=== PATIENT | female | born 1955 | race African-American/Black ===

== ENCOUNTER 2018-08-24 09:48 | Observation (INO) | payer OTHER ==
[~2018-08-24] VITALS: Ht 170.2 cm; Wt 45.4 kg
[2018-08-24] MEDS ORDERED: SODIUM CHLORIDE 0.9% 1000ML 1,000 ML IV STA (09:51)
--- OUTSIDE RECORDS SUMMARY | 2018-08-24 09:51 | XMS REPORT ---
Author Author [facility] Address Unknown Phone Unavailable Care Team Providers Care Bulk Driver Name Role Phone UNKNOWN, REFERRING PP Unavailable Problems This patient has no known problems. Allergies, Adverse Reactions, Alerts This patient has no known allergies or adverse reactions. Medications This patient has no known medications. Encounters Start Date/Time End Date/Time Encounter Type Admission Type Attending Clinicians Care Facility Care Department Encounter ID 2017-09-05 09:30:00 2017-09-05 09:30:00 Emergency E [facility] [id number] Results Test Description Test Time Test Comments Text Results Atomic Results Result Comments URINE DRUG SCREEN 2018-07-30 14:34:00 AMPHET (test code=BAMP) NEGATIVE NEGATIVE This is an unconfirmed screening. Result are to be used for medical purposes (treatment) only. Not intended for non-medical purposes. Cut-off concentration for a positive result for each drug: Amphetamine - 1,000 ng/ml Barbiturate - 200 ng/ml Benzodiazepine - 200 ng/ml Cannabinoids - 50 ng/ml Cocaine - 300 ng/ml Opiates - 300 ng/ml PCP - 25 ng/ml BARBITURATES (test code=BBAR) NEGATIVE NEGATIVE BENZO (test code=BBENZ) NEGATIVE NEGATIVE CANNABS (test code=BCANN) NEGATIVE NEGATIVE COCAINE (test code=BCOC) NEGATIVE NEGATIVE OPIATES (test code=BOPI) NEGATIVE NEGATIVE PCP (test code=BMTPCP) NEGATIVE NEGATIVE [id number] 13:55:00* Test Item Value Reference Range Comments GLUCOSE (test code=URGLU) NEGATIVE MG/DL NEG-100 BILIRUBN (test code=URBILI) NEGATIVE NEGATIVE KETONE (test code=URKET) TRACE MG/DL NEGATIVE BLOOD (test code=URBLD) NEGATIVE UR PH (test code=URPH) 5.5 5.0-7.5 PROTEIN (test code=URPRO) NEGATIVE MG/DL NEGATIVE NITRITES (test code=URNIT) NEGATIVE NEGATIVE UROBILINGEN (test code=URURO) 1.0 EU/DL 0.2-1.0 LEUKOCYT (test code=URLEU) TRACE NEGATIVE UA COLOR (test code=UA COLOR) YELLOW YELLOW CLARITY (test code=CLARITY) CLEAR CLEAR SP GRAV (test code=URSPGRAV) 1.009 1.000-1.025 UAMICRO (test code=UAMICRO) YES WBC (test code=URWBC) 5 /HPF 0-5 RBC (test code=URRBC) 1 /HPF 0-2 CASTS (test code=CAST) 1 /LPF 0-3 UR EPI (test code=EPI) 21 /LPF BACTERIA (test code=BACTERIA) NEGATIVE NONE BLOOD ALCOHOL (ETOH)2018-07-30 12:23:00* Test Item Value Reference Range Comments ALCOHOL BLOOD LEVEL (test code=ALC BLD) 318 MG/DL 0-10 RESULTS VERIFIED.C'd TO OT/1223/JEC Results are to be used for medical purposes (treatment) only. Not intended for non medical purposes. BMP, BASIC METABOLIC [id number] 12:22:00* Test Item Value Reference Range Comments SODIUM (test code=NA) 148 MMOL/L 137-145 K+ (test code=KSERUM) 4.4 MMOL/L 3.5-5.1 PLEASE NOTE NEW REFERENCE RANGE(S) IN EFFECT EFFECTIVE 06/07/2010 - NEW ANALYZER (Vessix 5600) CHLORIDE (test code=CL) 106 MMOL/L 98-107 CO2 (test code=CO2) 31 MMOL/L 22-30 BUN (test code=BUN) 6 MG/DL 7-17 CREA (test code=CREA) 0.3 MG/DL 0.7-1.2 GLUCOSE (test code=GLUCOSE) 92 MG/DL 70-99 Fasting glucose normal <100 MG/DL- [place] [employer] recommendation CALCIUM (test code=CABLOOD) 9.6 MG/DL 8.4-10.2 GFR (test code=GFR) 290 mL/min/1.73m2 A GFR of >90 mL/min/1.73m2 is considered normal. CT HEAD W/O [id number] 12:05:00[address] [id number] IMAGING REPORTPatient Name: Yasemin ANNA of Service: [id number]: 62 Sex: F Order #: [id number] [facility] 1955 [facility] Number: [id number] Record Number: [id number] Hospital Number: [id number] Physician: MARTIN SEGUNDO -Ordering Physician: RADHA JACKSON BRAIN WITHOUT CONTRAST@1139 hours July 30, 2018:CLINICAL HISTORY: Dizziness; fell striking his head; history of alcoholismand hypertension; no prior studies hereTECHNIQUE: Examination is performed with 3.75 mm axial sections withcoronal and sagittal reconstructions This CT exam was performed using oneor more of the following dose reduction techniques: Automated exposurecontrol, adjustment of the MA and or KV according to patient size or use ofiterative reconstruction technique.FINDINGS: The bony calvarium is grossly intact. There are no fluid levelsin the sinuses or mastoids.There is calcified plaque demonstrated in both cavernous carotid arteri es.There is mild underlying cortical and cerebellar atrophy present.Impression: No acute changes are demonstrated.Electronically Signed By: Randolph Boateng M.D., 07/30/2018 12:03 PMLegally authenticated by YOHANNES Garcia 2018-07-30 12:03:[id number] 11:52:00* Test Item Value Reference Range Comments WBC (test code=WBC) 6.8 K/UL 3.5-10.9 RBC (test code=RBC) 4.08 M/UL 4.0-5.0 HGB (test code=HGB) 15.0 G/DL 11.5-15.5 HCT (test code=HCT) 40.4 % 34-46 MCV (test code=MCV) 99.0 FL 80-98 MCH (test code=MCH) 36.8 PG 28-32 MCHC (test code=MCHC) 37.1 G/DL 32.5-36.5 RDW (test code=RDW) 12.1 % 11.5-14.5 PLT (test code=PLT) 122 K/UL 150-450 MPV (test code=MPV) 11.0 FL 7.4-10.4 MANDIFF (test code=MANDIFF) NO SCAN (test code=SCAN) NO NEUT% (test code=NEUT%) 39.9 % 40-75 LYMPH% (test code=LYMPH%) 46.4 % 24-44 MONO% (test code=MONO%) 10.0 % 0-13 EOS% (test code=EOS%) 1.9 % 0-4 BASO % (test code=BASO%) 1.5 % 0-2 IG (test code=IG) 0 % 0-1 IG% (test code=IG%) 0.3 % 0-1 IG%=Metamyelocytes, Myelocytes, and Promyelocytes. (Immature neutrophils not including "bands".) > 3% IG indicates risk of sepsis NRBC% (test code=NRBC%) 0 /100 WBC ABS NEUT (test code=NEUT) 2.7 K/UL 1.2-7.2 VITAMIN D,1,25 [id number] 12:18:00* Test Item Value Reference Range Comments CALCITRIOL (1,25 DI-OH VIT D) (test code=VITD1,25) 43.2 pg/mL 19.9-79.3 Performed at: [facility] Lab[address] [id number] Repair Tech: Edmar Vanessa MD, Phone: [phone] HEPATITIS C ANTIBODY [id number] 15:35:00* Test Item Value Reference Range Comments SCRN HCV (test code=SCRN HCV) NEGATIVE NEGATIVE Hepatitis C Antibody test is for screening purposes only. All reactives will be confirmed by additional testing. ER SCREEN FOR HIV 15:19:00* Test Item Value Reference Range Comments HIV 1/2 AB (test code=SCRN HIV) NONREACTIVE NONREACTIVE This test is used for SCREENING purposes only. All reactive results are prelimenary and confirmation results will follow. [id number] 11:37:00* Test Item Value Reference Range Comments MG (test code=MG) 1.1 mg/dL 1.6-2.3 CT ABDOMEN/PELVIS [id number] 07:29:00[address] [id number] IMAGING REPORTPatient Name: Yasemin ANNA of Service: [id number]: 62 Sex: F Order #: [id number] Room: [address] [place] [address] T4DOB: 1955 X-Ray Number: [id number] Record Number: [id number] Hospital Number: [id number] Physician: SOL CAESAROrdering Physician: CHARLIE OLIVA ABDOMEN/PELVIS WITH 06/25/2018 10:05 PMHISTORY: ast/alt elevation . Abnormal liver function tests. Abdominalpain with abnormal weight loss.COMPARISON: NoneTECHNIQUE: IV contrast-enhanced CT imaging of the abdomen and pelvis. ThisCT exam was performed using one or more of the following dose reductiontechniques: Automated exposure control, adjustment of the mA and/or KVaccording to patient size, or use of iterative reconstruction technique.FINDINGS:There is mild bibasilar atelectasis. The heart size is normal.The liver is enlarged and fatty. The gallbladder is distended withoutbiliary duct dilatation.The spleen, pancreas, adrenal glands, and kidneys are normal.The bowel is unobstructed. The bladder is distended and normal.The bones are intact without acute abnormality. There is degenerative discdisease of the lumbar spine.IMPRESSION:1. Hepatic steatosis with hepatomegaly.Electro nically Signed By: Gianni Obregon M.D., 06/26/2018 7:26 AMLegally authenticated by KIRK AGUIRRE 2018-06-26 07:26:[id number] 07:27:00* Test Item Value Reference Range Comments LIPASE (test code=LIPA) 204 U/L 23-300 BMP, BASIC METABOLIC [id number] 07:26:00* Test Item Value Reference Range Comments SODIUM (test code=NA) 141 MMOL/L 137-145 K+ (test code=KSERUM) 2.6 MMOL/L 3.5-5.1 PLEASE NOTE NEW REFERENCE RANGE(S) IN EFFECT EFFECTIVE 06/07/2010 - NEW ANALYZER (Vessix 5600) CHLORIDE (test code=CL) 96 MMOL/L 98-107 CO2 (test code=CO2) 34 MMOL/L 22-30 BUN (test code=BUN) 3 MG/DL 7-17 CREA (test code=CREA) 0.4 MG/DL 0.7-1.2 GLUCOSE (test code=GLUCOSE) 110 MG/DL 70-99 Fasting glucose normal <100 MG/DL- [place] [employer] recommendation CALCIUM (test code=CABLOOD) 8.4 MG/DL 8.4-10.2 GFR (test code=GFR) 208 mL/min/1.73m2 A GFR of >90 mL/min/1.73m2 is considered normal. RESULTS VERIFIED.C'd TO Shanelle BUIRN/4T @ 0725 06/26/18--[id number] 06:17:00* Test Item Value Reference Range Comments WBC (test code=WBC) 6.5 K/UL 3.5-10.9 RBC (test code=RBC) 3.38 M/UL 4.0-5.0 HGB (test code=HGB) 12.5 G/DL 11.5-15.5 HCT (test code=HCT) 33.6 % 34-46 MCV (test code=MCV) 99.4 FL 80-98 MCH (test code=MCH) 37.0 PG 28-32 MCHC (test code=MCHC) 37.2 G/DL 32.5-36.5 RDW (test code=RDW) 12.5 % 11.5-14.5 PLT (test code=PLT) 103 K/UL 150-450 MPV (test code=MPV) 11.7 FL 7.4-10.4 MANDIFF (test code=MANDIFF) NO SCAN (test code=SCAN) NO NEUT% (test code=NEUT%) 49.0 % 40-75 LYMPH% (test code=LYMPH%) 35.4 % 24-44 MONO% (test code=MONO%) 12.6 % 0-13 EOS% (test code=EOS%) 2.0 % 0-4 BASO % (test code=BASO%) 0.8 % 0-2 IG (test code=IG) 0 % 0-1 IG% (test code=IG%) 0.2 % 0-1 IG%=Metamyelocytes, Myelocytes, and Promyelocytes. (Immature neutrophils not including "bands".) > 3% IG indicates risk of sepsis ABS NEUT (test code=NEUT) 3.2 K/UL 1.2-7.2 VITAMIN [id number] 00:54:00* Test Item Value Reference Range Comments B12 (test code=B12) 841 pg/mL 239-931 LIVER [id number] 00:54:00* Test Item Value Reference Range Comments TOTPROT (test code=TOTPROT) 7.7 G/DL 6.3-8.2 ALBUMIN (test code=ALBSERUM) 4.5 G/DL 3.5-5.0 BILITOT (test code=BILITOT) 1.4 MG/DL 0.2-1.3 BILIDIR (test code=BILIDIR) 0.5 MG/DL 0.0-0.4 AST (test code=AST) 144 U/L 15-46 PHOSALK (test code=PHOSALK) 49 U/L 38-126 ALT (test code=ALT) 61 U/L 13-69 AMYLASE, [id number] 00:54:00* Test Item Value Reference Range Comments AMYLASE (test code=AMYLBLD) 83 U/L 30-110 [id number] 20:30:00* Test Item Value Reference Range Comments K+ (test code=KSERUM) 3.4 MMOL/L 3.5-5.1 PLEASE NOTE NEW REFERENCE RANGE(S) IN EFFECT EFFECTIVE 06/07/2010 - NEW ANALYZER (Vessix 5600) ACUTE HEPATITIS [id number] 16:26:00* Test Item Value Reference Range Comments HAAB,M (test code=HAAB,M) NEGATIVE NEGATIVE HBCABM (test code=HBCABM) NEGATIVE NEGATIVE A GRAYZONE result is presumptive evidence of IgM anti-HBc. Patients with specimens exhibiting booth zone reactive test results should be retested at approximately one-week intervals. HCV (test code=HCV) NEGATIVE NEGATIVE Hepatitis C Antibody test is for screening purposes only. All reactives will be confirmed by additional testing. HEPBSAG (test code=HEPBSAG) NEGATIVE NEGATIVE Hepatitis B Surface Antigen is for screening purpose only. All reactives will be sent to reference lab for confirmation. [id number] 13:58:00* Test Item Value Reference Range Comments GLUCOSE (test code=URGLU) NEGATIVE MG/DL NEG-100 BILIRUBN (test code=URBILI) NEGATIVE NEGATIVE KETONE (test code=URKET) NEGATIVE MG/DL NEGATIVE BLOOD (test code=URBLD) NEGATIVE UR PH (test code=URPH) 6.5 5.0-7.5 PROTEIN (test code=URPRO) NEGATIVE MG/DL NEGATIVE NITRITES (test code=URNIT) NEGATIVE NEGATIVE UROBILINGEN (test code=URURO) 0.2 EU/DL 0.2-1.0 LEUKOCYT (test code=URLEU) TRACE NEGATIVE UA COLOR (test code=UA COLOR) YELLOW YELLOW CLARITY (test code=CLARITY) CLEAR CLEAR SP GRAV (test code=URSPGRAV) 1.002 1.000-1.025 UAMICRO (test code=UAMICRO) YES WBC (test code=URWBC) 3 /HPF 0-5 RBC (test code=URRBC) 0 /HPF 0-2 CASTS (test code=CAST) 0 /LPF 0-3 UR EPI (test code=EPI) 2 /LPF BACTERIA (test code=BACTERIA) NEGATIVE NONE [id number] 13:28:00* Test Item Value Reference Range Comments SODIUM (test code=NA) 149 MMOL/L 137-145 K+ (test code=KSERUM) 2.5 MMOL/L 3.5-5.1 PLEASE NOTE NEW REFERENCE RANGE(S) IN EFFECT EFFECTIVE 06/07/2010 - NEW ANALYZER (SunriseS 5600) CHLORIDE (test code=CL) 100 MMOL/L 98-107 CO2 (test code=CO2) 29 MMOL/L 22-30 BUN (test code=BUN) 6 MG/DL 7-17 CREA (test code=CREA) 0.4 MG/DL 0.7-1.2 GLUCOSE (test code=GLUCOSE) 88 MG/DL 70-99 Fasting glucose normal <100 MG/DL- [place] [employer] recommendation CALCIUM (test code=CABLOOD) 9.5 MG/DL 8.4-10.2 TOTPROT (test code=TOTPROT) 7.7 G/DL 6.3-8.2 ALBUMIN (test code=ALBSERUM) 4.7 G/DL 3.5-5.0 BILITOT (test code=BILITOT) 1.6 MG/DL 0.2-1.3 AST (test code=AST) 157 U/L 15-46 PHOSALK (test code=PHOSALK) 57 U/L 38-126 ALT (test code=ALT) 80 U/L 13-69 GFR (test code=GFR) 208 mL/min/1.73m2 A GFR of >90 mL/min/1.73m2 is considered normal. RESULTS VERIFIED.C'd TO Carlos Alberto BROCK,FOUNDATION RELATIONS MANAGER/ER @ 1327 06/25/18--SBAFREE [id number] 13:28:00* Test Item Value Reference Range Comments FT4 (test code=FT4) 1.26 ng/dL 0.78-2.19 T3, [id number] 13:28:00* Test Item Value Reference Range Comments T3UP (test code=T3UP) 32.9 % 23.5-40.5 THYROID STIMULATION [id number] 13:28:00* Test Item Value Reference Range Comments TSH (test code=TSH) 2.65 UIU/ML 0.465-4.68 [id number] 13:09:00* Test Item Value Reference Range Comments WBC (test code=WBC) 6.9 K/UL 3.5-10.9 RBC (test code=RBC) 3.71 M/UL 4.0-5.0 HGB (test code=HGB) 13.4 G/DL 11.5-15.5 HCT (test code=HCT) 36.8 % 34-46 MCV (test code=MCV) 99.2 FL 80-98 MCH (test code=MCH) 36.1 PG 28-32 MCHC (test code=MCHC) 36.4 G/DL 32.5-36.5 RDW (test code=RDW) 12.6 % 11.5-14.5 PLT (test code=PLT) 104 K/UL 150-450 MPV (test code=MPV) 11.3 FL 7.4-10.4 MANDIFF (test code=MANDIFF) NO SCAN (test code=SCAN) NO NEUT% (test code=NEUT%) 41.0 % 40-75 LYMPH% (test code=LYMPH%) 46.1 % 24-44 MONO% (test code=MONO%) 9.8 % 0-13 EOS% (test code=EOS%) 1.9 % 0-4 BASO % (test code=BASO%) 0.9 % 0-2 IG (test code=IG) 0 % 0-1 IG% (test code=IG%) 0.3 % 0-1 IG%=Metamyelocytes, Myelocytes, and Promyelocytes. (Immature neutrophils not including "bands".) > 3% IG indicates risk of sepsis ABS NEUT (test code=NEUT) 2.8 K/UL 1.2-7.2 TROPONIN I - [id number] 13:07:00* Test Item Value Reference Range Comments TROP-I (test code=TROP-I) <0.012 ng/ml 0.012-0.033 INTERPRETIVE DATA A TROPONIN OF LESS THAN 0.034 NG/ML IS CONSIDERED NEGATIVE A TROPONIN OF 0.034 - 0.119 NG/ML IS CONSIDERED GRAYZONE A TROPONIN=/> 0.120 NG/ML IS CONSIDERED POSITIVE [id number] 13:07:00* Test Item Value Reference Range Comments %CKMB (test code=%MB) 0.7 % CKMB (test code=CKMB) 0.7 NG/ML 0.22-2.4 CK (test code=CK) 104 U/L 30-135 CKINTERP (test code=CKINTERP) NEGATIVE Negative CHEST 1 VIEW [id number] 13:00:00[address] [id number] IMAGING REPORTPatient Name: Yasemin ANNA of Service: [id number]: 62 Sex: F Order #: [id number] Room: [facility]: 1955 X-Ray Number: [id number] Record Number: [id number] Hospital Number: [id number] Physician: Anna BENOIT Physician: Mauri OLIVA.HypertensionHistory: Short of breath.Technique: Single AP chest projection.Findings: Single chest projection demonstrates normal heart size and clearlungs. No infiltrates or abnormalities are depicted. The osseous structuresappear intact.Impression:No acute-appearing cardiopulmonary abnormalities.Electronically Signed By: Mike Anna M.D., 06/25/2018 12:57 PMLegally authenticated by SHOSHANA Guerrero 2018-06-25 12:57:56HIP JOINT 2 [id number] 11:54:00[address] [id number] IMAGING REPORTPatient Name: Yasemin ANNA of Service: [id number]: 62 Sex: F Order #: [id number] [facility] 1955 [facility] Number: [id number] Record Number: [id number] Hospital Number: [id number] Physician: MARTIN SEGUNDO -Ordering Physician: Mariano ABREU hip 2 views:CLINICAL HISTORY: Fell 8 months ago; pain in the left hip; no recurrenttraumaTECHNIQUE: The pelvis and lateral view the left hip are submittedFINDINGS: The pelvis is grossly intact with no fractures identified.There are mild degenerative changes seen in both hips.The soft tissues are unremarkable.Impression: No evidence of acute bony injury to the pelvis or left hip..Electronically Signed By: Randolph Boateng M.D., 01/27/2018 11:51 Mitra authenticated by YOHANNES Garcia 2018-01-27 11:51:42
[2018-08-24] MEDS ORDERED: ASPIRIN 81 MG CHEW TAB PO ONE (10:00)
[2018-08-24] MEDS ORDERED: ONDANSETRON HCL INJ 2 MG/ML VIAL IV PRN ×2 (10:00→12:30)
[2018-08-24] MEDS ORDERED: ACETAMINOPHEN 325 MG TAB PO PRN (10:00)
[2018-08-24 10:55] LABS: BASOPHILS % 0.5 % (0.0-1.0); EOSINOPHILS # (AUTO) 0.2 (0.0-0.4); EOSINOPHILS % 2.2 % (0.0-6.0); HEMATOCRIT 39.1 % (34.2-44.1); LYMPHOCYTES # (AUTO) 1.8 (1.0-3.2); LYMPHOCYTES % 21.9 % (18.0-39.1); MEAN CORPUSCULAR HEMOGLOBIN 35.6 pg (28-32); MEAN CORPUSCULAR HGB CONC 35.8 g/dL (31-35); MEAN CORPUSCULAR VOLUME 99.5 fL (81-99); MONOCYTES # (AUTO) 0.9 (0.2-0.8); MONOCYTES % 11.3 % (4.4-11.3); NEUTROPHILS # (AUTO) 5.3 (2.1-6.9); NEUTROPHILS % 63.7 % (38.7-80.0); PLATELET COUNT 91 x10e3/uL (140-360); RED BLOOD COUNT 3.93 x10e6/uL (3.6-5.1); RED CELL DISTRIBUTION WIDTH 12.7 % (11.7-14.4)
[2018-08-24 11:14] LABS: ALANINE AMINOTRANSFERASE 22 IU/L (0-55); ALBUMIN 3.9 g/dL (3.5-5.0); ALBUMIN/GLOBULIN RATIO 1.1 (0.8-2.0); ALKALINE PHOSPHATASE 50 IU/L (40-150); AMYLASE 111 U/L (25-125); ANION GAP 17.1 mmol/L (8-16); BLOOD UREA NITROGEN 12 mg/dL (7-26); BUN/CREATININE RATIO 20 (6-25); CALCIUM 10.5 mg/dL (8.4-10.2); CARBON DIOXIDE 29 mmol/L (22-29); CHLORIDE 99 mmol/L (98-107); CREATINE KINASE 83 IU/L (29-168); CREATININE, SERUM 0.59 mg/dL (0.57-1.11); EST GLOMERULAR FILTRATION RATE > 60 ML/MIN (60-); GLUCOSE 102 mg/dL (74-118); LIPASE 78 U/L (8-78); MAGNESIUM 1.8 MG/DL (1.3-2.1); POTASSIUM 3.1 mmol/L (3.5-5.1); SODIUM 142 mmol/L (136-145)
--- NOTE | 2018-08-24 11:28 | Diagnostic Imaging Report ---
EXAMINATION: Head CT HISTORY: Altered mental status, hypertension. COMPARISON: None. TECHNIQUE: Multidetector axial images were obtained without contrast from the foramen magnum to the vertex . The images were reconstructed using brain and bone algorithms. Thin section brain images were reformatted into coronal and sagittal planes. Image quality: Motion/streaking artifact limits the evaluation of the skull base and posterior cranial fossa. Dose modulation, iterative reconstruction, and/or weight based adjustment of the mA/kV was utilized to reduce the radiation dose to as low as reasonably achievable. FINDINGS: Parenchyma: 1. A few scatter white matter hypodensities, most likely age-related minimal chronic microvascular ischemic changes. Otherwise no areas of abnormal density 2. No mass or hemorrhage. No CT evidence of acute territorial vascular insult. Extra-axial spaces:No abnormal density. No extra-axial fluid collections Brain volume: Normal for age. Ventricles: No hydrocephalus or displacement. Arteries: No density suggestive of thrombus. Dural sinuses: No abnormal density. Extra-axial spaces: No abnormal density. Foramen magnum: No mass, Chiari malformation, or basilar invagination. Sella: No obvious mass. Paranasal/mastoid sinuses: Imaged portions unremarkable. Skull/Scalp: No lytic or blastic lesions. No fractures. IMPRESSION: 1. No acute intracranial hemorrhage or cortical infarcts. 2. Minimal white matter chronic microvascular ischemic images. Signed by: Dr. Mary Alexander M.D. on 08/24/2018 11:24 AM
--- NOTE | 2018-08-24 11:47 | Diagnostic Imaging Report ---
EXAM: XR CHEST 1 VIEW DATE: 08/24/2018 9:51 AM INDICATION: Decline in mental status, weakness COMPARISON: None FINDINGS: Lines and Tubes: None Heart and Mediastinum: No acute cardiomediastinal findings. Lungs and Pleura: Minimal basilar opacities. Bones and Soft Tissues: No acute findings. IMPRESSION: 1. Minimal basilar opacities could represent atelectasis, edema, or pneumonia. Signed by: Dr. Michael Rosenberg MD on 08/24/2018 11:44 AM
[2018-08-24 12:18] LABS: BILIRUBIN,URINE NEGATIVE (NEGATIVE); CLARITY,URINE SL CLOUDY (CLEAR); COLOR,URINE YELLOW (YELLOW); KETONES,URINE NEGATIVE (NEGATIVE); LEUKOCYTE ESTERASE ,URINE TRACE (NEGATIVE); NITRITE,URINE NEGATIVE (NEGATIVE); PROTEIN,URINE DIPSTICK NEGATIVE (NEGATIVE); URINE UROBILINOGEN 0.2 mg/dL (0.2 - 1)
[2018-08-24 12:23] LABS: BACTERIA,URINE FEW /HPF; EPITHELIAL CELLS,URINE FEW /LPF
[2018-08-24] MEDS ORDERED: DIPHENHYDRAMINE HCL 25 MG CAP PO PRN (12:30)
[2018-08-24] MEDS ORDERED: ZOLPIDEM TARTRATE 5 MG TAB PO PRN (12:30)
[2018-08-24] MEDS ORDERED: LACTULOSE SYRUP 20 GM/30 ML UDC PO PRN (12:30)
[2018-08-24] MEDS ORDERED: IBUPROFEN 200 MG TAB PO PRN (12:30)
[2018-08-24] MEDS ORDERED: MULTIVITAMINS- 12 INJECTION 10 ML, FOLIC ACID MDV 5 MG, THIAMINE HCL INJ 100 MG in SODI... IV ONE ×2 (12:30→12:45)
[2018-08-24] MEDS ORDERED: POTASSIUM CHLORIDE 20 MEQ TAB CR PO STA (12:39)
[2018-08-24 13:46] LABS: HIV 1&2 AB SCREEN NON-REACTIVE (NONREACTIVE)
[2018-08-24 15:14] VITALS: BP 121/68
[2018-08-24] MEDS ORDERED: MULTIVITAMINS1 EAC7 (15:21)
[2018-08-24] MEDS ORDERED: AMLODIPINE BESYL5 MG PO (15:21)
[2018-08-24] MEDS ORDERED: NAPROXEN250 MG PO (15:21)
--- NOTE | 2018-08-24 17:00 | History and Physical ---
PRIMARY CARE PHYSICIAN: Dr. Juarez CHIEF COMPLAINT: Weakness and fatigue at detox center. HISTORY OF PRESENT ILLNESS: This is a 63-year-old woman with a history of alcohol abuse. She was drinking about 1 pint of liquor a day. Checking herself into [facility] about 4 days ago, last week . Due to the patient's severe weakness, fatigue and episode of falling with trauma to her right neck, the patient was sent to the hospital for further evaluation and management. The patient denies any chest pain or shortness of breath. She does have a cough, which is productive. Denies any fever, chills, or sweats. Denies any other symptoms, but does feel very fatigued. PAST MEDICAL HISTORY 1. Hypertension. 2. Alcohol abuse, 1 pint of liquor per day. 3. Chronic weight loss. 4. Cigarette use, about 1/8 pack per day. PAST SURGICAL HISTORY: None. ALLERGIES: PER ELECTRONIC MEDICAL RECORD. FAMILY/SOCIAL HISTORY: The patient is . She has no children. She states she quit alcohol about 4 days ago, which she has been in detox for. She smokes about 1/8 pack of cigarettes per day. MEDICATIONS: Per electronic medical record. REVIEW OF SYSTEMS: Denies any dizziness, chest pain, fever, chills, sweats, nausea, vomiting, diarrhea, headache, back pain, neck pain. PHYSICAL EXAMINATION VITAL SIGNS: Have been reviewed. GENERAL: A tired-appearing woman resting in bed. HEENT: Atraumatic. She has bitemporal wasting. Dry mucous membranes. CARDIOVASCULAR: Normal S1 and S2. LUNGS: Moderate breath sounds. ABDOMEN: Soft, nontender, nondistended. EXTREMITIES: No edema or calf tenderness. NEUROLOGIC: Alert. She has bradykinesia, slow speech. She is oriented times 3. She moves all extremities. Other motor strength is about 4/5 in all extremities. SKIN: Dry. PSYCHIATRIC: Flat affect. LABS: Reviewed. MEDICATIONS: Reviewed. ASSESSMENT: This is a 63-year-old woman. 1. Underweight state. 2. Thrombocytopenia. 3. Hypokalemia. 4. Hypercalcemia, likely secondary to dehydration. 5. Dehydration. 6. Hyperbilirubinemia. 7. Failure to thrive. 8. Alcohol abuse. 9. Cigarette use. 10. Suspected moderate protein-calorie malnutrition due to bitemporal wasting. 11. Possible early pneumonia. PLAN 1. Obtain prealbumin. 2. Rehydrate the patient. 3. Give folic acid and thiamine. 4. CT scan of the brain is negative. 5. Chest x-ray that shows some minimal opacity which could represent early pneumonia. 6. We will empirically treat the patient with azithromycin and ceftriaxone. Will obtain sputum culture. 7. Physical therapy consultation. 8. Replace electrolytes and recheck. 9. Avoid heparin and Pradaxa in the setting of thrombocytopenia. 10. Obtain hepatitis panel. 11. Follow up HIV screening. 12. Start Ensure 1 bottle 3 times a day. 13. Follow up labs and monitor closely. 14. Use SCD and Pepcid. Job#: [id number]
[2018-08-24] MEDS: FAMOTIDINE 20 MG/2 ML VIAL IV SCH (17:42)
[2018-08-24] MEDS: AZITHROMYCIN 500MG/NS 250 ML 250 ML IV SCH (17:45)
[2018-08-24] MEDS: CEFTRIAXONE SOD 1 GM VIAL IV SCH (17:50)
[2018-08-24 20:00] VITALS: BP 109/69
[2018-08-25] VITALS (7 sets, daily range): BP systolic 117–129; BP diastolic 69–80
[2018-08-25 05:29] LABS: BASOPHILS # (AUTO) 0.1 (0.0-0.1); BASOPHILS % 0.7 % (0.0-1.0); EOSINOPHILS # (AUTO) 0.3 (0.0-0.4); HEMATOCRIT 33.6 % (34.2-44.1); HEMOGLOBIN 11.9 g/dL (12.0-16.0); LYMPHOCYTES # (AUTO) 2.2 (1.0-3.2); LYMPHOCYTES % 30.9 % (18.0-39.1); MEAN CORPUSCULAR HEMOGLOBIN 35.6 pg (28-32); MEAN CORPUSCULAR HGB CONC 35.4 g/dL (31-35); MEAN CORPUSCULAR VOLUME 100.6 fL (81-99); MONOCYTES # (AUTO) 0.9 (0.2-0.8); MONOCYTES % 12.3 % (4.4-11.3); NEUTROPHILS # (AUTO) 3.7 (2.1-6.9); NEUTROPHILS % 51.8 % (38.7-80.0); PLATELET COUNT 84 x10e3/uL (140-360); RED BLOOD COUNT 3.34 x10e6/uL (3.6-5.1); RED CELL DISTRIBUTION WIDTH 12.9 % (11.7-14.4)
[2018-08-25 05:49] LABS: ANION GAP 10.2 mmol/L (8-16); BLOOD UREA NITROGEN 6 mg/dL (7-26); BUN/CREATININE RATIO 12 (6-25); CALCIUM 9.2 mg/dL (8.4-10.2); CARBON DIOXIDE 27 mmol/L (22-29); CHLORIDE 105 mmol/L (98-107); CREATININE, SERUM 0.51 mg/dL (0.57-1.11); EST GLOMERULAR FILTRATION RATE > 60 ML/MIN (60-); GLUCOSE 97 mg/dL (74-118); MAGNESIUM 1.5 MG/DL (1.3-2.1); POTASSIUM 3.2 mmol/L (3.5-5.1); SODIUM 139 mmol/L (136-145)
[2018-08-25] MEDS: ACETAMINOPHEN 325 MG TAB PO PRN ×2 (06:06→23:02)
[2018-08-25] MEDS: FAMOTIDINE 20 MG/2 ML VIAL IV SCH ×2 (08:56→17:16)
[2018-08-25] MEDS ORDERED: ENOXAPARIN SOD INJ 40 MG/0.4 ML SYR SC SCH (09:00)
[2018-08-25] MEDS ORDERED: POTASSIUM CHLORIDE 20 MEQ TAB CR PO STA (09:16)
[2018-08-25] MEDS: CEFTRIAXONE SOD 1 GM VIAL IV SCH (17:00)
[2018-08-25] MEDS: AZITHROMYCIN 500MG/NS 250 ML 250 ML IV SCH (17:20)
[2018-08-25] MEDS: QUETIAPINE FUMARATE 25 MG TAB PO SCH (23:53)
[2018-08-26] VITALS (9 sets, daily range): BP systolic 105–149; BP diastolic 71–98
[2018-08-26 05:32] LABS: BASOPHILS # (AUTO) 0.1 (0.0-0.1); BASOPHILS % 0.9 % (0.0-1.0); EOSINOPHILS # (AUTO) 0.3 (0.0-0.4); EOSINOPHILS % 3.4 % (0.0-6.0); HEMATOCRIT 33.7 % (34.2-44.1); HEMOGLOBIN 11.8 g/dL (12.0-16.0); LYMPHOCYTES # (AUTO) 2.4 (1.0-3.2); LYMPHOCYTES % 31.6 % (18.0-39.1); MEAN CORPUSCULAR HEMOGLOBIN 35.1 pg (28-32); MEAN CORPUSCULAR VOLUME 100.3 fL (81-99); MONOCYTES # (AUTO) 1.1 (0.2-0.8); MONOCYTES % 13.9 % (4.4-11.3); NEUTROPHILS # (AUTO) 3.8 (2.1-6.9); NEUTROPHILS % 49.8 % (38.7-80.0); PLATELET COUNT 92 x10e3/uL (140-360); RED BLOOD COUNT 3.36 x10e6/uL (3.6-5.1); RED CELL DISTRIBUTION WIDTH 12.6 % (11.7-14.4)
[2018-08-26] MEDS: QUETIAPINE FUMARATE 25 MG TAB PO SCH ×2 (08:24→20:03)
[2018-08-26] MEDS: FAMOTIDINE 20 MG/2 ML VIAL IV SCH ×2 (08:24→16:24)
[2018-08-26] MEDS: AZITHROMYCIN 500MG/NS 250 ML 250 ML IV SCH (16:24)
[2018-08-26] MEDS: CEFTRIAXONE SOD 1 GM VIAL IV SCH (16:24)
[2018-08-26] MEDS ORDERED: POTASSIUM CHLORIDE 20MEQ/15ML UDC PO ONE (17:00)
[2018-08-26] MEDS: ZOLPIDEM TARTRATE 5 MG TAB PO SCH (20:04)
[2018-08-27] VITALS (7 sets, daily range): BP systolic 104–134; BP diastolic 73–81
[2018-08-27] MEDS: QUETIAPINE FUMARATE 25 MG TAB PO SCH (09:37)
[2018-08-27] MEDS: FAMOTIDINE 20 MG/2 ML VIAL IV SCH ×2 (09:37→16:35)
[2018-08-27] MEDS: AZITHROMYCIN 500MG/NS 250 ML 250 ML IV SCH (16:35)
[2018-08-27] MEDS: CEFTRIAXONE SOD 1 GM VIAL IV SCH (16:35)
[2018-08-27] MEDS: ZOLPIDEM TARTRATE 5 MG TAB PO SCH (20:16)
[2018-08-27] MEDS ORDERED: QUETIAPINE FUMARATE 25 MG TAB PO SCH (21:00)
[2018-08-28] VITALS: BP 118/76
[2018-08-28 04:00] VITALS: BP 124/84
[2018-08-28 07:59] VITALS: BP 108/76
[2018-08-28] MEDS: FAMOTIDINE 20 MG/2 ML VIAL IV SCH (08:44)
[2018-08-28] MEDS: QUETIAPINE FUMARATE 25 MG TAB PO SCH (08:44)
[2018-08-28 10:49] VITALS: BP 108/76
== END 2018-08-28 11:50 ==
LOC: ER 09:48 → ERHOLD 12:46 → IMCU 15:50
PROVIDERS: ADMIT Internal Medicine; ATTEND Internal Medicine
DX: E86.0 Dehydration (principal); E87.6 Hypokalemia; E44.0 Moderate protein-calorie malnutrition; E86.1 Hypovolemia; F10.20 Alcohol dependence, uncomplicated; I10 Essential (primary) hypertension; Z72.0 Tobacco use; R63.6 Underweight; D69.6 Thrombocytopenia, unspecified; E83.52 Hypercalcemia; E80.6 Other disorders of bilirubin metabolism; R62.7 Adult failure to thrive; Z68.1 Body mass index [BMI] 19.9 or less, adult
CPT/HCPCS: 36415 ×4; 70450; 71045; 80048; 80053; 81001; 82140; 82150; 82550; 82553; 83690; 83735 ×2; 84100; 84132; 84134; 84443; 84484; 85025 ×3; 87070; 87086; 87205; 87390; 92526; 92610; 93005; 96367; 97116 ×4; 97162; 97530 ×2; 99284; G0378 ×5; G0433; G0435; J0456 ×4; J0696 ×4; J3411; J7030; 96365